=== PATIENT | female | born 1995 ===

== ENCOUNTER → 2023-02-11 08:50 | Outpatient (REF) | payer OTHER, SELFPAY ==
--- NOTE | 2023-02-11 08:55 | HM_ITS ---
Conclusion: 1. Patient was monitored for total period of 2 days 2. Baseline was normal sinus rhythm with average heart of 82 beats per minute 3. No significant pauses noted 4. Very rare PVCs with total count of 3 isolated PVCs noted 5. Patient reported event correlated with isolated PVCs MTDD
== END ==
LOC: HO.CARD 08:50
PROVIDERS: PCP Family Medicine; Visit Provider Family Medicine
DX: R00.2 Palpitations (principal)
CPT/HCPCS: 93225

== ENCOUNTER 2023-03-19 06:47 | Outpatient (REF) | payer OTHER, SELFPAY ==
[2023-03-19 11:40] LABS: Appearance Urine Clear; Color Urine Yellow; Glucose Urine UA Negative (Negative); Leukocyte Esterase Urine Negative (Negative); Nitrite Urine Negative (Negative); PH 5.5 (5.0-9.0); Specific Gravity - Urine 1.025 (1.005-1.025); UMIC TRIGGER UA YES; Urine Blood Small (1+) (Negative); Urine Ketones Negative (Negative); Urine Protein Negative (Neg-Trace)
[2023-03-19 11:41] LABS: MANUAL DIFF FLAG NO
[2023-03-19 11:51] LABS: Basophils Percent Auto 0.3 % (0-2); Eosinophils Absolute Auto 0.1 X10*3/uL (0.0-0.4); Eosinophils Percent Auto 1.4 % (0-4); Hematocrit 40.4 % (37.0-47.0); Hemoglobin 13.3 g/dl (12.0-16.0); Imm Gran Abs Auto 0.03 X10*3/uL (0.00-0.03); Imm Gran Pct Auto 0.4 % (0.0-0.4); Lymphocytes Absolute Auto 2.1 X10*3/uL (1.2-4.9); Lymphocytes Percent Auto 29.1 % (20-40); Mean Corpuscular HGB Conc 32.9 g/dl (31.0-35.0); Mean Corpuscular Hemoglobin 29.8 pg (27.0-33.0); Mean Corpuscular Volume 90.4 fL (80.0-98.0); Mean Platelet Volume 9.6 fL (9.4-12.3); Monocytes Absolute Auto 0.5 X10*3/uL (0.1-1.2); Monocytes Percent Auto 6.2 % (2-11); Neutrophils Absolute Auto 4.5 x10*3/uL (2.0-8.3); Neutrophils Percent Auto 62.6 % (45-73); Platelet Count 375 X10*3/uL (160-400); Red Blood Count 4.47 X10*6/uL (4.20-5.50); Red Cell Distribution Width 13.2 % (11.0-16.0); White Blood Count 7.2 X10*3/uL (4.8-10.8)
[2023-03-19 12:23] LABS: Creatinine Urine 207.35 mg/dL; Microalbum/Creatinine Ratio Ur 4.3 ug/mg cr
[2023-03-19 12:24] LABS: Bacteria Urine Trace (None Seen); Hyaline Casts Urine 0-2 /LPF (0-2); Squamous Epithelial Cell Urine 0-2 /HPF (0-2); WBC Urine 0-5 /HPF (0-5)
[2023-03-19 12:33] LABS: Alanine Aminotransferase 12 U/L (0-31); Albumin Level 3.9 g/dL (3.5-5.0); Alkaline Phosphatase 68 U/L (39-117); Anion Gap 13 (12-20); Aspartate Amino Transferase 11 U/L (5-31); Bilirubin Total 0.3 mg/dL (0.0-1.0); Blood Urea Nitrogen 13 mg/dL (9-16); Calcium 9.6 mg/dL (8.4-10.2); Carbon Dioxide 23 mmol/L (22-29); Chloride 110 mmol/L (96-108); Cholesterol 197 mg/dL; Estimated Glomerular Filt Rate > 60; Glucose Fasting 96 mg/dL (60-99); HDL Cholesterol 54 mg/dL; LDL Cholesterol Calculated 106 mg/dl; Potassium 4.1 mmol/L (3.3-5.1); Sodium 142 mmol/L (135-145); Total Protein 7.1 g/dL (6.5-8.0); Triglycerides 186 mg/dL
[2023-03-19 15:41] LABS: CT PCR NOT DETECTED (Not Detect.); NG PCR NOT DETECTED (Not Detect.)
[2023-03-20 07:49] LABS: Syphilis Screen Nonreactive (Nonreactive)
[2023-03-20 07:55] LABS: HBS Num1 62.71 mIU/mL (0-7.99); HBc Num1 0.38 S/CO (0.00-0.79); HBsAGNum1 0.45 S/CO (0.00-0.99); HIV AB/AG Nonreactive (Nonreactive); HIV Num 1 0.07 S/CO (0.00-0.99); Hepatitis B Core Antibody Nonreactive (Nonreactive); Hepatitis B Surface Antigen Negative (Negative); ~HepC Num1 0.32 S/CO (0.00-0.79); ~Hepatitis B Surface Antibody REACTIVE (Nonreactive); ~Hepatitis C Antibody Nonreactive (Nonreactive)
== END 2023-03-19 06:48 | disposition home or self-care (01) ==
LOC: HO.HMGCLDS 06:47
PROVIDERS: PCP Family Medicine; Visit Provider Family Medicine
DX: Z00.00 Encounter for general adult medical examination without abnormal findings (principal); Z11.4 Encounter for screening for human immunodeficiency virus [HIV]; I10 Essential (primary) hypertension; Z20.2 Contact with and (suspected) exposure to infections with a predominantly sexual mode of transmission
CPT/HCPCS: 0353U; 80053; 80061; 81001; 82043; 84443; 85025; 86704; 86706; 86780; 86803; 87340; 87389

== ENCOUNTER → 2023-03-25 08:36 | Outpatient (BNVA) | payer OTHER, SELFPAY | PROVIDERS: PCP Family Medicine; Visit Provider Hospitalist ==

== ENCOUNTER → 2023-04-08 13:36 | Outpatient (BNVA) | payer OTHER, SELFPAY | PROVIDERS: PCP Family Medicine; Referring Provider Family Medicine; Visit Provider Internal Medicine ==

== ENCOUNTER 2023-05-11 15:22 | Outpatient (REF) | payer OTHER, SELFPAY ==
--- NOTE | 2023-05-11 16:01 | PFT_ITS ---
INDICATION: Asthma. SPIROMETRY: FEV1 to FVC of 87% with an FEV1 of 3 L, which is 98% predicted and FVC of 3.47 L, which is 97% predicted. No significant response to bronchodilators noted. Maximum voluntary ventilation 96% predicted. LUNG VOLUMES: Total lung capacity 91% predicted with a residual volume 66% predicted. DIFFUSION CAPACITY: DLCO of 118% predicted. COMPARISONS: None. INTERPRETATION: No obstructive nor restrictive ventilatory defects identified. No significant response to bronchodilators noted. Normal maximum voluntary ventilation. Lung volumes are normal except for decrease in the expiratory reserve volume secondary to likely an elevated BMI. Diffusion capacity is high normal. The patient is a nonsmoker. If asthma is in the differential, a methacholine challenge may be helpful in assessing for hyperreactive airways. Clinical correlation warranted. MD ARELY Chiu/MODL / [id number]
== END 2023-05-11 15:23 | disposition home or self-care (01) ==
LOC: HO.RESP 15:22
PROVIDERS: PCP Family Medicine; Visit Provider Hospitalist
DX: J45.909 Unspecified asthma, uncomplicated (principal)
CPT/HCPCS: 94010; 94727; 94729

== ENCOUNTER → 2023-05-11 16:01 | Outpatient (BNV) | payer OTHER, SELFPAY | PROVIDERS: PCP Family Medicine; Visit Provider Hospitalist | DX: J45.909 Unspecified asthma, uncomplicated (principal) | CPT/HCPCS: 94060; 94727; 94729 ==

== ENCOUNTER 2023-06-11 15:36 | Outpatient (AMB) | payer OTHER, SELFPAY ==
[2023-06-11 15:44] VITALS: PULSE 80; O2SAT 98; BMI 30.2
--- NOTE | 2023-06-11 15:44 | MHC.OFFVIS ---
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 She is not sure if it was COVID. But after she ended up with asthma like symptoms. She was being followed by Pulmonary. She was living at [place] the time. She was started on Breo which did help her breathe symptoms and also Singulair. She has never tested for allergies. Subsequently in July 2022 the patient developed COVID. After she developed significant tachycardia and palpitations. She was sent for CTA which she says per report that did not have any blood clots. She does take estrogen control pills. She has moved to the area now getting situated. She has never had allergy testing. Denies any exposures off fumes or toxins. She is a nonsmoker. She does have some hoarseness. It may be from the powder inhaler. Will go ahead and switch her in use the air chamber. I did teach her how to use it. The patient will undergo pulmonary function study and blood work and have her return. She also see Cardiology. At some point she also need imaging studies. 06/11/2023 the patient is here for pulmonary follow-up visit. Overall the patient is doing a little better. She however did not tolerate the Symbicort inhaler. She seemed to do better on the Breo. She continue on the Breo this time. She does have a rescue inhaler that she has not required. The patient did have PFTs which we personally reviewed. She has normal lung mechanics which is reassuring. In addition to that she has been taking the Singulair for the allergies. She also takes Zyrtec. The patient did not have her allergy testing. I will have her get the results once they are available. If she has any significant allergies I will let her know. [facility] Medical History (Updated 04/02/23 @ 16:09 by Cali Quarles) Acid reflux Allergies Asthma Dyspnea Frequent headaches IBS (irritable bowel syndrome) Family History (Updated 04/08/23 @ 13:59 by Roxanne Miller) Father Heart problem Mother No problems noted. Social History Housing: Apartment Patient Tobacco Use Status: Never used Tobacco e-Cigarette/Vaping Use: Never Used service: No Current occupational status: employed Current occupation: banker Current occupational exposures/hazards: No Cognitive needs: No Hearing needs: No Vision needs: No Review of Systems Const Denies chills, Denies fatigue, Denies fever(s), Denies headache(s) and Denies weakness ENT Denies dizziness and Denies headache(s) Card Denies chest pain, Denies lightheadedness, Reports palpitations, Denies dyspnea, Reports dyspnea on exertion and Denies other (Palpitations) Resp Reports cough, Denies dyspnea, Reports dyspnea on exertion and Denies wheezing Musc Denies numbness and Denies tingling Neuro Denies dizziness, Denies headache(s), Denies numbness, Denies tingling, Denies paresthesias and Denies weakness Psych Denies anxiety and Denies depression Endo Denies fatigue and Reports palpitations Aller/Immun Denies wheezing Physical Exam Vital Signs: Last Vital Signs Pulse 80 06/11/23 15:44 Pulse Ox 98 06/11/23 15:44 Oxygen Delivery Method Room Air 06/11/23 15:44 BMI result Body Mass Index 30.2 Const General: comfortable HEENT Head: Yes normocephalic Neck Neck: Yes supple Chest Chest palpation & inspection: normal inspection of the chest Resp Effort & Inspection: normal respiratory effort Auscultation: diminished lung sounds Cardio Rate: regular rate Rhythm: regular rhythm Heart sounds: S1 normal heart sound present and S2 normal heart sound present GI Palpation (GI): Soft to palpation Skin General skin exam: no rashes or lesions noted Extrem General: Yes no clubbing, cyanosis or edema Assessment & Plan Assessment & Plan (1) Asthma: Code(s): J45.909 - Unspecified asthma, uncomplicated (2) Allergies: Code(s): T78.40XA - Allergy, unspecified, initial encounter (3) Dyspnea: Code(s): R06.00 - Dyspnea, unspecified Plan stopped Symbicort continue Breo 100 FLEX as needed allergy testing continue zyrtec continue singulair F/U in the Spring 2023 Medications: Changed From fluticasone furoate-vilanterol 100-25 mcg/dose (Breo Ellipta) 3 ea inhalation DAILY To fluticasone furoate-vilanterol 100-25 mcg/dose (Breo Ellipta) 3 ea inhalation DAILY 90 days 3 ea 3RF Refilled montelukast (Singulair) 10 mg PO BEDTIME 90 days 90 tabs 3RF Coding Level of Care Code Est Pt Level 4 (96409) Diagnoses Asthma J45.909 Allergies T78.40XA Dyspnea R06.00 Time Spent (min) 17
== END 2023-06-11 16:11 | disposition home or self-care (01) ==
PROVIDERS: PCP Family Medicine; Visit Provider Hospitalist
DX: J45.909 Unspecified asthma, uncomplicated (principal); T78.40XA Allergy, unspecified, initial encounter; R06.00 Dyspnea, unspecified
CPT/HCPCS: 99214

== ENCOUNTER → 2023-06-11 15:36 | Outpatient (BNVA) | payer OTHER, SELFPAY | PROVIDERS: PCP Family Medicine; Visit Provider Hospitalist | DX: J44.9 Chronic obstructive pulmonary disease, unspecified (principal); J45.909 Unspecified asthma, uncomplicated ==

== ENCOUNTER → 2023-06-12 13:56 | Outpatient (REF) | payer OTHER, SELFPAY ==
--- NOTE | 2023-06-12 13:59 | CA_ITS ---
Transthoracic Echocardiogram Patient (Last, First, Middle): Katiuska Thomas, Gender: Female Date of : 1995 Age: 27 Procedure Date: 06/12/2023 Procedure Type: Transthoracic Echocardiogram Location: OP Height: 157.48 cm Weight: 74.84 kg BSA: 1.76 m2 Heart Rate: 71 bpm BP: 105 / 70 mmHg General Office Associate: MARIE Referring MD: Tian Hidalgo MD Symptoms: R06.00 - Dyspnea, unspecified Study Quality: Fair ECG Rhythm: Sinus Conclusions: - Normal left ventricular size, thickness, systolic function, and wall motion. The visually estimated ejection fraction is between 55-60%. Diastolic function is normal for age. - Normal right ventricular cavity size and systolic function. Findings Left Ventricle Normal left ventricular size, thickness, systolic function, and wall motion. The visually estimated ejection fraction is between 55-60%. Diastolic function is normal for age. Right Ventricle Normal right ventricular cavity size and systolic function. Atria The left atrium is normal in size. Aortic Valve Normal aortic valve structure and function. There is no aortic valve stenosis. There is no aortic valve regurgitation. Mitral Valve Normal mitral valve structure and function. There is trace mitral valve regurgitation. There is no mitral valve stenosis. Pulmonic Valve Normal pulmonic valve structure and function. There is no pulmonic valve regurgitation. Tricuspid Valve Normal tricuspid valve structure and function. Tricuspid regurgitation envelope is inadequate for calculation of right ventricular systolic pressure. Normal right atrial pressure. Great Vessels All visible segments of the aorta are normal in size. The visualized portions of the pulmonary artery and branches are normal. Venous The inferior vena cava is normal in size and collapses greater than 50% with inspiration. Pericardium/Pleural There is no evidence of pericardial effusion. Prior Study Comparison No prior study available for comparison. Measurements 2D Linear Measurements IVSd: 0.80 0.6-0.9/0.6-1.0 cm LVIDd: 4.40 3.9-5.3/4.2-5.9 cm LVIDd Index: 2.50 2.4-3.2/2.2-3.1 cm/m2 LVIDs: 2.90 2.0-3.6 cm LVPWd: 0.80 0.7-1.1 cm LA Diam: 3.00 2.7-3.8/3.0-4.0 cm LAIDs Index: 1.70 1.5-2.3 cm/m2 LV Mass: 136.05 67-162/88-224 g LV Mass Index: 77.30 43-95/49-115 g/m2 LVOT Diam: 2.10 3.0+(-)1.3 cm 2D Systolic Function EF 4C: 56.90 >55% EF 2C: 62.90 >55% EF BiP: 60.00 >55% Mitral Valve MV Pk E: 0.73 MV PK A: 0.54 MV Decel Time: 204.00 E/A: 1.30 E'Lateral: 12.40 E'Medial: 9.57 E/E' Med: 7.60 E/E' Lat: 5.90 PHT: 60.00 MVA PHT: 3.67 Decel Stanley: 3.58 Aortic Valve AoV Pk Jacob: 1.03 AoV Mn Jacob: 0.79 AoV VTI: 0.23 AoV Pk Grad: 4.00 Aov Mn Grad: 3.00 FAN Cont.VTI: 3.15 LVOT LVOT Pk Jacob: 1.01 LVOT Mn Jacob: 0.68 LVOT VTI: 0.21 LVOT Pk Grad: 4.00 LVOT Mn Grad: 2.00 LVOT Diam: 2.10 LVOT Area: 3.46 Diastolic Function MV Pk E: 0.73 MV Pk A: 0.54 E/A: 1.30 E'Medial: 9.57 E/E' Med: 7.60 E' Laterial: 12.40 E/E' Lat: 5.90 Right Ventricle TAPSE (mm): 22.30 TVS' Jacob: 13.70 Tricuspid Valve RA Press: 3.00 Great Vessels Aorta Sinus of Valsalva: 3.10 2.0-3.5 cm Ao Asc: 3.10 2.1-3.4 cm Pulmonary Valve PV Pk Jacob: 0.85 Peak PV Grad: 3.00 Updated in Other Vendor System with Status of Final Jose Hyman MD electronically signed on 06/14/2023 8:47:35 PM with status of Final
== END ==
LOC: HO.CARD 13:56
PROVIDERS: PCP Family Medicine; Visit Provider Internal Medicine
DX: R06.00 Dyspnea, unspecified (principal)
CPT/HCPCS: 93306

== ENCOUNTER → 2023-06-12 13:59 | Outpatient (BNV) | payer OTHER, SELFPAY | PROVIDERS: PCP Family Medicine; Visit Provider Internal Medicine Cardiovascular Disease | DX: R06.00 Dyspnea, unspecified (principal); I49.3 Ventricular premature depolarization | CPT/HCPCS: 93306 ==

== ENCOUNTER 2023-06-18 14:34 | Outpatient (AMB) | payer OTHER, SELFPAY ==
--- NOTE | 2023-06-18 14:42 | MHC.OFFVIS ---
Intake Vital Signs 06/18/23 14:43 Height 5 ft 2 in Weight 179 lb 14.355 oz BMI 32.9 BP 110/74 Blood Pressure Location Lt brachial Position Sitting Pulse 84 Intake Visit Reasons: 2 mth f/up echo Intake Note: follow up Risk Investigator Required: No Accompanied by: Self / Same As Patient Allergies No Known Allergies Allergy (Verified 06/18/23 14:48) Medication List - Last Reconciled 06/18/23 by Tian Hidalgo MD cetirizine (Zyrtec) 10 mg PO DAILY PRN famotidine (Pepcid) 20 mg PO DAILY PRN fluticasone furoate-vilanterol 100-25 mcg/dose (Breo Ellipta) 3 ea inhalation DAILY 90 days montelukast (Singulair) 10 mg PO BEDTIME 90 days omeprazole 20 mg PO DAILY 90 days HPI HPI Comments History of Present Illness Details Katiuska returns for follow up. Recently seen in consultation regarding an abnormal EKG. Patient herself does not have any known cardiac issues. Couple of years ago, at the beginning of COVID she believes she actually had COVID but was not diagnosed. She had 1 further episode last year. She was then diagnosed with asthma and takes inhalers for the same. From an EKG, she was told to have incomplete right bundle-branch block. Otherwise, no known cardiac issues. Some shortness of breath off and on, suspected to be from asthma. She also gets sensations of heart racing. Otherwise, fairly active without any major limitations. No major comorbidities. Nonsmoker. Father had surgery for a hole in the heart. Since last seen, she had completed an echocardiogram. [facility] Medical History (Updated 04/02/23 @ 16:09 by Clai Quarles) Dyspnea Allergies Frequent headaches Acid reflux IBS (irritable bowel syndrome) Asthma Family History Father Heart problem Mother No problems noted. Social History Housing: Apartment Patient Tobacco Use Status: Never used Tobacco e-Cigarette/Vaping Use: Never Used service: No Current occupational status: employed Current occupation: banker Current occupational exposures/hazards: No Cognitive needs: No Hearing needs: No Vision needs: No Review of Systems Const Denies weakness ENT Denies dizziness Card Denies chest pain, Denies chest pain with activity, Denies syncope, Denies rapid heart rate, Denies pedal edema, Denies edema, Denies leg edema, Denies lightheadedness, Denies palpitations, Denies dyspnea, Denies dyspnea on exertion and Denies orthopnea Resp Denies cough, Denies dyspnea and Denies dyspnea on exertion GI Denies hematochezia and Denies change in stool character Musc Denies abnormal gait, Denies muscle cramps, Denies muscle weakness, Denies numbness, Denies radiating pain into limb and Denies tingling Neuro Denies abnormal gait, Denies dizziness, Denies syncope, Denies numbness, Denies tingling and Denies weakness Endo Denies palpitations Physical Exam Vital Signs: Last Vital Signs Pulse 84 06/18/23 14:43 BP 110/74 06/18/23 14:43 BMI result Body Mass Index 32.9 Const General: comfortable and no acute distress Orientation/consciousness: patient oriented x3 HEENT Other: Unremarkable Head: Yes normal to inspection Neck Neck: Yes normal visual inspection Chest Chest palpation & inspection: normal inspection of the chest Resp Auscultation: clear to auscultation bilaterally Cardio Palpation: normal PMI Heart sounds: S1 normal heart sound present, S2 normal heart sound present, no gallops, no murmurs and no rubs GI Palpation (GI): Soft to palpation Back/Spine/Pelvis Other: unremarkable Skin General skin exam: no rashes or lesions noted Neuro General: patient oriented x3 Extrem General: Yes normal to inspection Psych Mental Status: mental status grossly normal Assessment & Plan Assessment & Plan (1) Abnormal EKG: Code(s): R94.31 - Abnormal electrocardiogram [ECG] [EKG] (2) History of COVID-19: Code(s): Z86.16 - Personal history of COVID-19 (3) Asthma: Code(s): J45.909 - Unspecified asthma, uncomplicated (4) Dyspnea: Code(s): R06.00 - Dyspnea, unspecified Plan EKG, underlying rhythm is sinus at 87/Min; nonspecific ST-T changes somewhat diffusely. Normal VA. Top normal corrected QT; slight RSR' pattern. In the Holter, underlying rhythm is sinus with an average rate of 82/Min. Rare PVCs. Echocardiogram with preserved biventricular function, no valvular issues and no evidence of pulmonary hypertension. Findings discussed with patient. Overall, reassurance only. No specific treatment from cardiac. In case any recurrent symptoms like worsening shortness of breath etc., advised to contact us. She understands. Coding Level of Care Code Est Pt Level 3 (73441) Diagnoses Abnormal EKG R94.31 History of COVID-19 Z86.16 Asthma J45.909 Dyspnea R06.00
[2023-06-18 14:43] VITALS: BP 110/74; PULSE 84; BMI 32.9
== END 2023-06-18 14:56 | disposition home or self-care (01) ==
PROVIDERS: PCP Family Medicine; Referring Provider Family Medicine; Visit Provider Internal Medicine
DX: R94.31 Abnormal electrocardiogram [ECG] [EKG] (principal); Z86.16 Personal history of COVID-19; J45.909 Unspecified asthma, uncomplicated; R06.00 Dyspnea, unspecified
CPT/HCPCS: 99213

== ENCOUNTER → 2023-06-18 14:34 | Outpatient (BNVA) | payer OTHER, SELFPAY | PROVIDERS: PCP Family Medicine; Referring Provider Family Medicine; Visit Provider Internal Medicine ==